=== PATIENT | female | born 1955 | race Caucasian/White ===

== ENCOUNTER 2017-06-16 11:00 | Day surgery (SDC) | payer BC ==
[2017-06-15 10:14] VITALS: BMI 19.3
[2017-06-16] MEDS ORDERED: Propofol 200 MG/20 ML VIAL ONE (13:51)
[2017-06-16] MEDS ORDERED: Lidocaine 2% PF 10 ML AMP (For Epidural Use) ONE (13:51)
[2017-06-16] MEDS ORDERED: Glycopyrrolate 0.2 MG/ML 5 ML SYRINGE ONE (13:51)
--- NOTE | 2017-06-16 19:31 | OP ---
PROCEDURES: EGD with biopsy, colonoscopy, diagnostic. PREOPERATIVE DIAGNOSES: 1. Colorectal cancer screening. 2. Abdominal pain, weight loss, and abnormal CT scan of the small bowel. 3. Nausea and vomiting. POSTOPERATIVE DIAGNOSES: 1. Normal esophagogastroduodenoscopy. Small bowel biopsies taken to rule out celiac disease or inf iltrative process, but no evidence of thickening seen on this even into the third portion of the duo denum that was described on previous CAT scan in the small bowel. 2. Normal ileal colonoscopy. RECOMMENDATIONS: 1. Keep appointment for CT enterography. 2. Follow up in the office early next week. ANESTHESIA: TIVA. PROCEDURE IN DETAIL: After the patient was informed of the risks, benefits, and possible complicati ons of endoscopy including perforation, bleeding, reactions to medication and aspiration, informed c onsent was obtained. The patient brought to endoscopy suite where she was sedated in gradual fashio n. Once she was comfortable, a bite block was placed in incisural orifice. The endoscope was advan keely through the esophagus, stomach and second and third portion of duodenum and slowly removed. The re was good visualization of mucosa. There were no masses, lesions, or arteriovenous malformations identified. There was a small hiatal hernia present. Retroflexed views in the stomach were normal. The duodenum was normal to the third portion. Biopsies from small bowel were taken and submitted to Pathology. The scope was removed. The patient was turned in the room. A rectal exam was performed, which was normal. The endoscope w as advanced through anal canal through the colon. The cecum was identified by ileocecal valve and a ppendiceal orifice. Terminal ileum was entered and found to be normal. The scope was then slowly r emoved. No abnormal findings noted. Retroflexed views were good. The scope was then removed and t he patient brought to recovery in stable condition.
== END 2017-06-16 14:47 | disposition home or self-care (01) ==
LOC: SDC 11:00
PROVIDERS: ATTEND Internal Medicine Gastroenterology
PROC: 0DB98ZX Excision of Duodenum, Via Natural or Artificial Opening Endoscopic, Diagnostic (ICD-10-PCS; principal; 2017-06-16)
PROC: 0DJD8ZZ Inspection of Lower Intestinal Tract, Via Natural or Artificial Opening Endoscopic (ICD-10-PCS; principal; 2017-06-16)
DX: Z12.11 Encounter for screening for malignant neoplasm of colon (principal); R11.0 Nausea; R10.9 Unspecified abdominal pain; R63.4 Abnormal weight loss; R11.2 Nausea with vomiting, unspecified; D47.3 Essential (hemorrhagic) thrombocythemia; D64.9 Anemia, unspecified; R63.0 Anorexia; J44.9 Chronic obstructive pulmonary disease, unspecified; I10 Essential (primary) hypertension; M06.9 Rheumatoid arthritis, unspecified; Z68.1 Body mass index [BMI] 19.9 or less, adult; Z79.52 Long term (current) use of systemic steroids; Z79.899 Other long term (current) drug therapy; Z98.51 Tubal ligation status; Z98.890 Other specified postprocedural states; Z87.891 Personal history of nicotine dependence
CPT/HCPCS: 88305; J2001; J2704

== ENCOUNTER 2018-05-13 09:57 | Outpatient (CLI) | payer BC | END 2018-05-13 09:58 | disposition home or self-care (01) | LOC: BICMAMMO 09:57 | PROVIDERS: ATTEND Obstetrics & Gynecology | DX: Z12.31 Encounter for screening mammogram for malignant neoplasm of breast (principal); Z98.82 Breast implant status; Z80.3 Family history of malignant neoplasm of breast | CPT/HCPCS: 77063; 77067 ==

== ENCOUNTER 2018-06-28 10:21 | Outpatient (CLI) | payer BC ==
--- NOTE | 2018-06-28 12:09 | BD ---
BONE DENSITOMETRY USING DEXA: Date: 06/28/18 HISTORY: Postmenopausal screening for osteoporosis. FINDINGS: Lumbar Spine: BMD (g/cm2) L1 0.898 T-Score: -0.8 Z-Score: 0.7 L2 0.923 T-Score: -1.0 Z-Score: 0.7 L3 0.923 T-Score: -1.5 Z-Score: 0.3 L4 1.074 T-Score: -0.1 Z-Score: 1.9 L1-L4 0.959 T-Score: -0.8 Z-Score: 0.9 Femoral Neck: 0.764 T-Score: -0.8 Z-Score: 0.7 Total Femur: 1.050 T-Score: 0.9 Z-Score: 2.1 IMPRESSION: Normal bone mineral density. No evidence of osteopenia/osteoporosis. POS: [facility]
== END 2018-06-28 10:22 | disposition home or self-care (01) ==
LOC: BICMAMMO 10:21
PROVIDERS: ATTEND Internal Medicine Rheumatology
DX: M81.8 Other osteoporosis without current pathological fracture (principal)
CPT/HCPCS: 77080

== ENCOUNTER 2018-10-11 08:47 | Outpatient (CLI) | payer BC | END 2018-10-11 08:48 | disposition home or self-care (01) | LOC: BICMRI 08:47 | PROVIDERS: ATTEND Orthopaedic Surgery | DX: M05.79 Rheumatoid arthritis with rheumatoid factor of multiple sites without organ or systems involvement (principal); R22.30 Localized swelling, mass and lump, unspecified upper limb | CPT/HCPCS: 82565 ==

== ENCOUNTER 2018-11-01 06:12 | Day surgery (SDC) | payer BC ==
[2018-10-31 15:37] VITALS: BMI 20.7
[2018-11-01] MEDS ORDERED: Midazolam HCl 2 mg/2 ml Vial ONE (06:41)
[2018-11-01] MEDS ORDERED: Fentanyl 100 MCG/2 ML VIAL ONE (06:41)
--- NOTE | 2018-11-01 10:24 | MRI ---
MRI OF THE RIGHT SHOULDER WITH AND WITHOUT IV CONTRAST: Date: 11/01/18 INDICATION: 63-year-old female with a palpable mass along the posterior aspect of the right shoulder that has bee n present for approximately 1 month. Surface marker was placed within the region of interest. Multipl delilah, multisequence MR images were obtained of the right shoulder with and without contrast utilizing 15 mL of MultiHance. No comparisons are available. FINDINGS: Underlying the surface marker is a flame-shaped region of increased T2, increased T1 (relative to mus rigo) signal abnormality with associated heterogeneous enhancement. Similar appearing signal abnormali ty is seen within the interfascial compartment between the infraspinatus and the mid posterior deltoi d that also demonstrates linear enhancement on the postcontrast series. The flame-shaped region of si gnal abnormality and enhancement involving the posterior deltoid measures approximately 2.6 x 1.5 x 1 .6 cm in its greatest AP, mediolateral, and craniocaudad dimensions, respectively. The rotator cuff i s intact. There is mild AC joint osteoarthrosis. No muscular atrophy is evident; however, there is so me high T2 signal seen within the musculature of the infraspinatus. No definite pathologically enlarg ed lymph nodes are evident. One of the most prominent right axillary lymph nodes measures 9.0 mm. No signal abnormality is seen involving the bone. The biceps tendon is located. No abnormal fluid is see n within the subacromial/subdeltoid bursa. Coracoclavicular ligaments are intact. IMPRESSION: 1. T2 hyperintense, T1 hyperintense, enhancing flame-shaped lesion underlying the region of palpable interest of the right posterior deltoid muscle. There is some associated T2 signal abnormality and e nhancement seen within the interfascial space between the right infraspinatus and deltoid muscles. Th ere is some mild abnormal edema seen within the musculature of the infraspinatus without paulina muscle volume loss. No lymphadenopathy is evident. 2. Differential consideration for the findings include an infectious myositis or potentially foreign body reaction. The lesion is not particularly mass-like; however, a primary malignancy or metastatic disease is not entirely excluded. Other less likely causes include a myositis from muscular infarcti on. Other differential considerations include a nonspecific myositis, possibly related to connective tissue disease such as dermatomyositis. Would recommend consideration for biopsy. 3. Mild AC joint osteoarthrosis. 4. Mild suspected myositis involving portions of the infraspinatus. POS: [facility]
[2018-11-01] MEDS ORDERED: Gadobenate Dimeglumine 529 MG/1 ML (20ML VIAL) ONE (11:43)
[2018-11-01] MEDS ORDERED: Lidocaine 1% PF 5 ML VIAL ONE (11:53)
[2018-11-01] MEDS ORDERED: PROPOFOL 200 MG/20 ML VIAL ONE (11:53)
[2018-11-01] MEDS ORDERED: Succinylcholine Chloride 20 MG/ML 10 ml SYRINGE FS ONE (11:53)
[2018-11-01] MEDS ORDERED: Ondansetron PF 4 MG/2 ML Vial ONE (11:53)
== END 2018-11-01 10:15 | disposition home or self-care (01) ==
LOC: SDC/OP 06:12
PROVIDERS: ATTEND Orthopaedic Surgery
DX: R22.31 Localized swelling, mass and lump, right upper limb (principal); M19.011 Primary osteoarthritis, right shoulder; J44.9 Chronic obstructive pulmonary disease, unspecified; M10.9 Gout, unspecified; Z79.52 Long term (current) use of systemic steroids; Z79.51 Long term (current) use of inhaled steroids; Z79.899 Other long term (current) drug therapy
CPT/HCPCS: A9577; J2001; J2250; J2405; J2704; J3010

== ENCOUNTER 2019-01-04 15:38 | Outpatient (CLI) | payer BC ==
--- NOTE | 2019-01-04 16:24 | ULT ---
EXAM: Bilateral lower extremity venous ultrasound HISTORY: Bilateral lower extremity edema. COMPARISON: None TECHNIQUE: Multiplanar grayscale and color Doppler images were obtained in a bilateral lower extremit y venous ultrasound. Spectral analysis of the Doppler waveforms were performed. FINDINGS: The bilateral common femoral vein, profunda femoral veins, superficial femoral veins, and p opliteal veins are normal in appearance without visible thrombus. These vessels demonstrate normal compression, flow, and augmentation. The bilateral posterior tibial veins, profunda femoral veins and greater saphenous veins are patent w ithout evidence of DVT. IMPRESSION: No evidence of DVT.
== END 2019-01-04 15:39 | disposition home or self-care (01) ==
LOC: BICULT 15:38
PROVIDERS: ATTEND Internal Medicine Rheumatology
DX: R60.0 Localized edema (principal)
CPT/HCPCS: 93970

== ENCOUNTER 2019-06-02 09:46 | Outpatient (CLI) | payer BC ==
--- NOTE | 2019-06-02 11:07 | MMO ---
Bilateral MAMMO Bilat Screen [facility]. CLINICAL HISTORY: Patient is 64 years old and is seen for screening. The patient has the following family history of breast cancer: sister, malignant (generic). The patient has no personal history of cancer. The patient has a history of bilateral Implants more than 10 years ago. VIEWS: The views performed were: bilateral craniocaudal with tomosynthesis and bilateral mediolateral oblique with tomosynthesis. FILMS COMPARED: The present examination has been compared to a prior imaging study performed at [facility] on 05/13/2018. This study has been interpreted with the assistance of computer-aided detection. MAMMOGRAM FINDINGS: There are scattered fibroglandular densities. Benign calcifications are noted bilaterally. Bilateral implants are stable. There are no suspicious masses, suspicious calcifications, or new areas of architectural distortion. IMPRESSION: THERE IS NO MAMMOGRAPHIC EVIDENCE OF MALIGNANCY. A ROUTINE FOLLOW-UP MAMMOGRAM IN 1 YEAR IS RECOMMENDED. THE RESULTS OF THIS EXAM WERE SENT TO THE PATIENT. ACR BI-RADS Category 2 - Benign finding MAMMOGRAPHY NOTE: 1. A negative mammogram report should not delay a biopsy if a dominant of clinically suspicious mass is present. 2. Approximately 10% to 15% of breast cancers are not detected by mammography. 3. Adenosis and dense breasts may obscure an underlying neoplasm. Reported by: KOBI MATHEW MD Electonically Signed: [id number]
== END 2019-06-02 09:47 | disposition home or self-care (01) ==
LOC: BICMAMMO 09:46
PROVIDERS: ATTEND Family Medicine
DX: Z12.31 Encounter for screening mammogram for malignant neoplasm of breast (principal); Z80.3 Family history of malignant neoplasm of breast; Z98.82 Breast implant status
CPT/HCPCS: 77063; 77067

== ENCOUNTER 2019-06-14 12:21 | Outpatient (CLI) | payer BC ==
--- NOTE | 2019-06-14 14:04 | RAD ---
2 VIEW CHEST: Date: 06/14/19 HISTORY: COPD. COMPARISON: 05/01/15. FINDINGS: The lungs appear clear. Heart and mediastinum appear normal. IMPRESSION: No acute process. POS: [facility]
--- NOTE | 2019-06-14 14:04 | RAD ---
THORACIC SPINE 3 VIEWS: Date: 06/14/19 HISTORY: Thoracic pain. FINDINGS: Thoracic vertebra maintain normal height and alignment. Mild degenerative spurring. No focal lytic or blastic process. No compression deformity. IMPRESSION: Mild degenerative change. Thoracic spine otherwise unremarkable. POS: [facility]
== END 2019-06-14 12:22 | disposition home or self-care (01) ==
LOC: BICRAD 12:21
PROVIDERS: ATTEND Internal Medicine Rheumatology
DX: M81.8 Other osteoporosis without current pathological fracture (principal); M54.6 Pain in thoracic spine; J44.9 Chronic obstructive pulmonary disease, unspecified; R63.4 Abnormal weight loss; M47.814 Spondylosis without myelopathy or radiculopathy, thoracic region
CPT/HCPCS: 71046; 72070

== ENCOUNTER 2019-07-11 10:18 | Outpatient (CLI) | payer BC ==
--- NOTE | 2019-07-11 11:32 | BD ---
DEXA BONE DENSITY STUDY: Date: 07/11/19 HISTORY: Osteoporosis screening. COMPARISON: Exam from 2018. FINDINGS: Lumbar Spine: BMD (g/cm2) L1 0.840 T-Score: -1.4 Z-Score: 0.2 L2 0.917 T-Score: -1.0 Z-Score: 0.7 L3 0.973 T-Score: -1.0 Z-Score: 0.8 L4 1.087 T-Score: -0.2 Z-Score: 2.1 L1-L4 0.960 T-Score: -0.8 Z-Score: 1.0 Change from comparison exam is +0.2%, not statistically significant. Left Femoral Neck: 0.742 T-Score: -1.0 Z-Score: 0.5 Total Femur: 0.953 T-Score: 0.1 Z-Score: 1.3 Change from comparison exam is -9.3%, statistically significant decrease. 10 YEAR FRACTURE RISK: Major osteoporotic fracture: 8.6% Hip fracture: 0.8% IMPRESSION: Osteopenia with statistically significant decreased bone mineral density of the total left hip from t he comparison exam. POS: [facility]
== END 2019-07-11 10:19 | disposition home or self-care (01) ==
LOC: BICMAMMO 10:18
PROVIDERS: ATTEND Internal Medicine Rheumatology
DX: M81.8 Other osteoporosis without current pathological fracture (principal); M54.6 Pain in thoracic spine; M85.852 Other specified disorders of bone density and structure, left thigh
CPT/HCPCS: 77080

== ENCOUNTER 2019-09-12 11:53 | Outpatient (CLI) | payer BC ==
--- NOTE | 2019-09-12 12:16 | RAD ---
EXAM: Chest 2 views: HISTORY: Dyspnea COMPARISON: 06/14/2019 FINDINGS: There is a normal-sized cardiomediastinal silhouette. There is no evidence of consolidation, mass, or pleural effusion. The bones are unremarkable. IMPRESSION: No evidence of acute cardiopulmonary disease
== END 2019-09-12 11:54 | disposition home or self-care (01) ==
LOC: RAD 11:53
PROVIDERS: ATTEND Internal Medicine Pulmonary Disease
DX: R06.00 Dyspnea, unspecified (principal)
CPT/HCPCS: 71046

== ENCOUNTER 2020-06-11 11:56 | Outpatient (CLI) | payer BC ==
--- NOTE | 2020-06-11 13:13 | MMO ---
Bilateral MAMMO Bilat Screen [facility]. CLINICAL HISTORY: Patient is 65 years old and is seen for screening. The patient has the following family history of breast cancer: sister, malignant (generic). The patient has no personal history of cancer. The patient has a history of bilateral Implants more than 10 years ago. VIEWS: The views performed were: bilateral craniocaudal with tomosynthesis; bilateral mediolateral oblique with tomosynthesis; and bilateral Implant displaced with tomosynthesis. FILMS COMPARED: The present examination has been compared to prior imaging studies performed at [facility] on 05/13/2018 and 06/02/2019. This study has been interpreted with the assistance of computer-aided detection. MAMMOGRAM FINDINGS: There are scattered fibroglandular densities. There are benign appearing calcifications seen in both breasts. There are no suspicious masses, suspicious calcifications, or new areas of architectural distortion. IMPRESSION: THERE IS NO MAMMOGRAPHIC EVIDENCE OF MALIGNANCY. A ROUTINE FOLLOW-UP MAMMOGRAM IN 1 YEAR IS RECOMMENDED. THE RESULTS OF THIS EXAM WERE SENT TO THE PATIENT. ACR BI-RADS Category 2 - Benign finding MAMMOGRAPHY NOTE: 1. A negative mammogram report should not delay a biopsy if a dominant of clinically suspicious mass is present. 2. Approximately 10% to 15% of breast cancers are not detected by mammography. 3. Adenosis and dense breasts may obscure an underlying neoplasm. Reported by: ABIGAIL MASSEY MD Electonically Signed: [id number]
== END 2020-06-11 11:57 | disposition home or self-care (01) ==
LOC: BICMAMMO 11:56
PROVIDERS: ATTEND Registered Nurse
DX: Z12.31 Encounter for screening mammogram for malignant neoplasm of breast (principal); Z80.3 Family history of malignant neoplasm of breast; Z98.82 Breast implant status
CPT/HCPCS: 77063; 77067

== ENCOUNTER 2021-02-03 17:10 | Emergency (ER) | payer BC ==
[2021-02-03 17:53] LABS: #Eosinphils 0.1 thou/uL (0.0-0.7); #Lymphocytes 0.7 thou/uL (1.20-3.40); #Monocytes 0.8 thou/uL (0.11-0.59); #Neutrophils 7.1 thou/uL (1.40-6.50); %Basophils 0.2 % (0.0-1.0); %Eosinophils 0.6 % (0.0-10.0); %Lymphocytes 8.5 % (21.0-51.0); %Monocytes 9.2 % (0.0-10.0); %Neutrophils 81.6 % (42.0-75.0); Hemoglobin 12.6 g/dL (12.0-16.0); Mean Corpuscular HGB CONC 33.7 g/dL (32.0-36.0); Mean Corpuscular Hemoglobin 32.4 pg (27.0-31.0); Mean Platelet Volume 8.1 fL (7.4-10.4); Platelet Count 397 thou/uL (130-400); RBC Distribution Width 12.8 % (11.5-14.5); White Blood Cell (WBC) Count 8.7 thou/uL (4.8-10.8)
[2021-02-03 18:08] LABS: ALT (SGPT) 74 U/L (8-55); AST (SGOT) 79 U/L (5-34); Albumin 3.5 g/dL (3.4-4.8); Alkaline Phosphatase 278 U/L (40-110); Anion Gap 17 mmol/L (10-20); BUN (Urea Nitrogen) 27 mg/dL (9.8-20.1); Bilirubin, Total 0.8 mg/dL (0.2-1.2); Calc. Creatinine Clearance 0 mL/min (70-130); Calcium 8.5 mg/dL (7.8-10.44); Carbon Dioxide 27 mmol/L (23-31); Chloride 93 mmol/L (98-107); Globulin 3.6 g/dL (2.4-3.5); Glucose 112 mg/dL (80-115); Lipase 56 U/L (8-78); Potassium 3.7 mmol/L (3.5-5.1); Protein, Total 7.1 g/dL (5.8-8.1); Sodium 133 mmol/L (136-145)
== END 2021-02-03 21:50 | disposition home or self-care (01) ==
LOC: ERS 17:10
DX: E86.0 Dehydration (principal); E86.1 Hypovolemia; N17.9 Acute kidney failure, unspecified; J44.9 Chronic obstructive pulmonary disease, unspecified; Z79.899 Other long term (current) drug therapy
CPT/HCPCS: 36415; 71045; 80053; 82550; 83690; 84484; 85025; 93005

== ENCOUNTER 2021-03-27 10:35 | Outpatient (CLI) | payer BC, MEDICARE | END 2021-03-27 10:36 | disposition home or self-care (01) | LOC: BICMAMMO 10:35 | PROVIDERS: ATTEND Internal Medicine Rheumatology | DX: M81.8 Other osteoporosis without current pathological fracture (principal); M85.89 Other specified disorders of bone density and structure, multiple sites | CPT/HCPCS: 77080 ==

== ENCOUNTER 2021-06-17 10:09 | Outpatient (CLI) | payer MEDICARE, BC | END 2021-06-17 10:10 | disposition home or self-care (01) | LOC: BICMAMMO 10:09 | PROVIDERS: ATTEND Registered Nurse | DX: Z12.31 Encounter for screening mammogram for malignant neoplasm of breast (principal); Z98.82 Breast implant status; Z80.3 Family history of malignant neoplasm of breast | CPT/HCPCS: 77063; 77067 ==

== ENCOUNTER 2022-06-18 10:59 | Outpatient (CLI) | payer MEDICARE, BC | END 2022-06-18 11:00 | disposition home or self-care (01) | LOC: BICMAMMO 10:59 | PROVIDERS: ATTEND Registered Nurse | DX: Z12.31 Encounter for screening mammogram for malignant neoplasm of breast (principal); Z98.82 Breast implant status; Z80.3 Family history of malignant neoplasm of breast | CPT/HCPCS: 77063; 77067 ==

== ENCOUNTER 2023-06-21 09:53 | Outpatient (CLI) | payer MEDICARE, BC | END 2023-06-21 09:54 | disposition home or self-care (01) | LOC: BICMAMMO 09:53 | PROVIDERS: ATTEND Registered Nurse | DX: Z12.31 Encounter for screening mammogram for malignant neoplasm of breast (principal); Z13.820 Encounter for screening for osteoporosis; T38.0X1A Poisoning by glucocorticoids and synthetic analogues, accidental (unintentional), initial encounter; Z80.3 Family history of malignant neoplasm of breast; Z98.82 Breast implant status; M85.89 Other specified disorders of bone density and structure, multiple sites | CPT/HCPCS: 77063; 77067; 77080 ==

== ENCOUNTER 2024-01-11 10:49 | Inpatient (IN) | payer MEDICARE, BC ==
[2024-01-11 11:47] LABS: #Basophils 0.03 10x3/uL (0.0-0.2); #Eosinphils Less than 0.03 10x3/uL (0.0-0.7); %Basophils 0.2 % (0.0-1.0); %Eosinophils 0.1 % (0.0-10.0); %Lymphocytes 8.2 % (21.0-51.0); %Monocytes 6.4 % (0.0-10.0); %Neutrophils 84.7 % (42.0-75.0); Mean Corpuscular HGB CONC 33.3 g/dL (32.0-36.0); Mean Corpuscular Hemoglobin 30.7 pg (27.0-31.0); Mean Corpuscular Volume 92.1 fL (78.0-98.0); Mean Platelet Volume 9.5 fL (7.4-10.4); Platelet Count 504 10x3/uL (130-400); RBC Distribution Width 12.6 % (11.5-14.5); Red Blood Cell (RBC) Count 3.91 mill/uL (4.20-5.40)
[2024-01-11 11:53] LABS: ALT (SGPT) 15 U/L (8-55); AST (SGOT) 18 U/L (5-34); Albumin 3.1 g/dL (3.4-4.8); Alkaline Phosphatase 58 U/L (40-110); Anion Gap 19 mmol/L (10-20); BUN (Urea Nitrogen) 35 mg/dL (9.8-20.1); Bilirubin, Total 0.5 mg/dL (0.2-1.2); Calc. Creatinine Clearance 0 mL/min (70-130); Calcium 10.1 mg/dL (7.8-10.44); Carbon Dioxide 22 mmol/L (23-31); Chloride 97 mmol/L (98-107); Estimated GFR 28; Globulin 4.8 g/dL (2.4-3.5); Glucose 114 mg/dL (80-115); Potassium 4.1 mmol/L (3.5-5.1); Protein, Total 7.9 g/dL (5.8-8.1); Sodium 134 mmol/L (136-145)
[2024-01-11 14:38] LABS: Actual Bicarbonate (HCO3v) 24.1 mEq/L (22-28); Base Excess 0.6 mEq/L (-2.0 to +3.0); Calcium, Ionized (venous) 1.14 mmol/L (1.16-1.32); Chloride (VBG) 96 mmol/L (98-106); Hematocrit-VBG 37 % (36.0-47.0); Hemoglobin (Hb) 12.7 g/dL (11.7-16.1); Potassium (VBG) 4.49 mmol/L (3.70-5.30); Sodium 133 mmol/L (133-146); pH (venous) 7.456 (7.32-7.43)
[2024-01-11 14:55] LABS: PTT 28.5 sec (22.9-36.1); Prothrombin Time 13.3 sec (12.0-14.7)
[2024-01-11 15:20] LABS: Troponin I Less than 0.010 ng/mL (< 0.028)
[2024-01-11] MEDS ORDERED: Sodium Chloride 0.9% 100 ML ONE (16:26)
[2024-01-11] MEDS ORDERED: Piperacillin/Tazobactam 3.375 GM VIAL ONE (16:26)
[2024-01-11] MEDS ORDERED: Bisacodyl 5 MG TAB PO PRN (16:42)
[2024-01-11] MEDS ORDERED: Ondansetron ODT 4 MG TAB PO PRN (16:42)
[2024-01-11] MEDS ORDERED: Acetaminophen 325 MG TAB PO PRN (16:42)
[2024-01-11] MEDS ORDERED: Ondansetron PF 4 MG/2 ML Vial IVP PRN (16:42)
[2024-01-11] MEDS ORDERED: Senokot S 8.6-50 MG TAB PO PRN (16:42)
[2024-01-11] MEDS ORDERED: Acetaminophen 650 MG Suppository PR PRN (16:42)
[2024-01-11] MEDS ORDERED: Guaifenesin DM 100-10/5 ML UDCUP PO PRN (16:42)
[2024-01-11] MEDS ORDERED: Albuterol 2.5 MG (3 mL) NEB NEB PRN (16:42)
[2024-01-11] MEDS: Vancomycin (BATCH) 1.25 GM in Premix 1 BAG IVPB SCH (19:15)
[2024-01-11] MEDS: Sodium Chloride 0.9% 1,000 ML IV SCH (19:18)
[2024-01-11 19:20] VITALS: BMI 17.4
[2024-01-11] MEDS: methylPREDNISolone Sod Succ 40 MG VIAL IVP SCH (19:22)
[2024-01-11] MEDS: cefTRIAXone\\ROCEPHIN 1 GM in Sodium Chloride 0.9% 100 ML IVPB SCH (20:02)
[2024-01-11] MEDS: Azithromycin 500 MG in Sodium Chloride 0.9% 250 ML 250 ML IVPB SCH (20:02)
[2024-01-11] MEDS: Heparin 5,000 UNITS/ML VIAL SC SCH (20:03)
[2024-01-11] MEDS: Ipratropium/Albuterol 3 ML NEB NEB SCH (20:45)
[2024-01-11 21:35] LABS: Legionella Urinary Ag Negative (Negative); Strep pneumo Urine Ag NEGATIVE (NEGATIVE)
[2024-01-12] MEDS: Melatonin 3 MG TAB PO SCH (00:17)
[2024-01-12 06:06] LABS: Hematocrit 29.2 % (36.0-47.0); Hemoglobin 9.4 g/dL (12.0-16.0); Mean Corpuscular HGB CONC 32.2 g/dL (32.0-36.0); Mean Corpuscular Hemoglobin 29.5 pg (27.0-31.0); Mean Corpuscular Volume 91.5 fL (78.0-98.0); Mean Platelet Volume 9.7 fL (7.4-10.4); Platelet Count 351 10x3/uL (130-400); RBC Distribution Width 12.7 % (11.5-14.5); Red Blood Cell (RBC) Count 3.19 mill/uL (4.20-5.40)
[2024-01-12 06:28] LABS: Lymphocytes 1 % (21-51); Monocytes 1 % (0-10); Neutrophil 97 % (42-75); Platelet Adequacy Comment Platelets Normal; RBC Morphology Within Normal Limits
[2024-01-12 07:10] LABS: Anion Gap 16 mmol/L (10-20); BUN (Urea Nitrogen) 34 mg/dL (9.8-20.1); Calc. Creatinine Clearance 25 mL/min (70-130); Calcium 8.8 mg/dL (7.8-10.44); Carbon Dioxide 23 mmol/L (23-31); Chloride 107 mmol/L (98-107); Estimated GFR 35; Glucose 142 mg/dL (80-115); Potassium 4.9 mmol/L (3.5-5.1); Sodium 141 mmol/L (136-145)
[2024-01-12] MEDS: Ipratropium/Albuterol 3 ML NEB NEB SCH (14:16)
[2024-01-12] MEDS: Losartan 25 MG TAB PO SCH ×2 (15:40→15:42)
[2024-01-12 17:26] VITALS: BMI 17.4
[2024-01-12] MEDS: Mometasone 100 MCG HFA INHALER (RT USE) INH SCH (19:01)
[2024-01-12] MEDS: Melatonin 3 MG TAB PO PRN (21:41)
[2024-01-13 06:00] LABS: #Basophils 0.03 10x3/uL (0.0-0.2); %Basophils 0.3 % (0.0-1.0); %Eosinophils 0.3 % (0.0-10.0); Hematocrit 30.8 % (36.0-47.0); Hemoglobin 9.8 g/dL (12.0-16.0); Mean Corpuscular HGB CONC 31.8 g/dL (32.0-36.0); Mean Corpuscular Volume 94.2 fL (78.0-98.0); Mean Platelet Volume 9.8 fL (7.4-10.4); Platelet Count 404 10x3/uL (130-400); RBC Distribution Width 12.9 % (11.5-14.5); Red Blood Cell (RBC) Count 3.27 mill/uL (4.20-5.40)
[2024-01-13 07:12] LABS: Anion Gap 12 mmol/L (10-20); BUN (Urea Nitrogen) 32 mg/dL (9.8-20.1); Calc. Creatinine Clearance 29 mL/min (70-130); Calcium 8.9 mg/dL (7.8-10.44); Carbon Dioxide 22 mmol/L (23-31); Chloride 111 mmol/L (98-107); Estimated GFR 43; Glucose 86 mg/dL (80-115); Potassium 4.3 mmol/L (3.5-5.1); Sodium 141 mmol/L (136-145)
[2024-01-13] MEDS: Losartan 25 MG TAB PO SCH (08:25)
[2024-01-13] MEDS: Cholecalciferol 1,000 UNITS (25 MCG) TAB PO SCH (08:26)
[2024-01-13] MEDS: methylPREDNISolone Sod Succ 40 MG VIAL IVP SCH (08:34)
[2024-01-13] MEDS ORDERED: [UNRECOGNIZED DRUG - OTHER] PO SCH (09:00)
[2024-01-13] MEDS ORDERED: Cholecalciferol 1,000 UNITS (25 MCG) TAB PO SCH (09:00)
[2024-01-13] MEDS ORDERED: Non-Formulary Item 1 EACH (Fluticasone/Umeclidin/Vilanter [Trelegy Ellipta 200-62.5-25] 1 INH SCH (09:00)
[2024-01-13] MEDS ORDERED: [UNRECOGNIZED DRUG - OTHER] PO SCH (09:00)
[2024-01-13] MEDS ORDERED: VITAMIN C PO SCH (09:00)
[2024-01-13] MEDS ORDERED: BIOTIN PO SCH (09:00)
[2024-01-13] MEDS ORDERED: Losartan 25 MG TAB PO SCH (09:00)
[2024-01-13 09:27] VITALS: TEMP 98.2
[2024-01-13 10:02] VITALS: BP 170/72
== END 2024-01-13 10:37 | disposition home or self-care (01) | DRG 871 ==
LOC: ERS 10:49 → T4-A 16:27
PROVIDERS: ADMIT Internal Medicine; ATTEND Hospitalist
DX: A41.1 Sepsis due to other specified staphylococcus (principal); J18.9 Pneumonia, unspecified organism; J96.01 Acute respiratory failure with hypoxia; N17.9 Acute kidney failure, unspecified; J44.1 Chronic obstructive pulmonary disease with (acute) exacerbation; J43.9 Emphysema, unspecified; I12.9 Hypertensive chronic kidney disease with stage 1 through stage 4 chronic kidney disease, or unspecified chronic kidney disease; N18.9 Chronic kidney disease, unspecified; R22.2 Localized swelling, mass and lump, trunk; Z79.899 Other long term (current) drug therapy; Z98.51 Tubal ligation status; Z98.82 Breast implant status; Z87.891 Personal history of nicotine dependence; M05.79 Rheumatoid arthritis with rheumatoid factor of multiple sites without organ or systems involvement
CPT/HCPCS: 36415; 71046; 71250; 80048; 80053; 82805; 83605; 83880; 84443; 84484; 85025; 85610; 85730; 87040; 87149; 87449; 87633; 87899; 93005; 94640; 96374; J0456; J0696; J1644; J2543; J2920; J3370; J3490; J7050; J7620

== ENCOUNTER 2024-03-01 10:18 | Outpatient (CLI) | payer MEDICARE, BC | END 2024-03-01 10:19 | disposition home or self-care (01) | LOC: BICCT 10:18 | PROVIDERS: ATTEND Registered Nurse | DX: R91.1 Solitary pulmonary nodule (principal); J98.4 Other disorders of lung; J43.9 Emphysema, unspecified; I25.10 Atherosclerotic heart disease of native coronary artery without angina pectoris; Z98.82 Breast implant status | CPT/HCPCS: 71250 ==

== ENCOUNTER 2024-05-11 10:15 | Outpatient (CLI) | payer MEDICARE, BC | END 2024-05-11 10:16 | disposition home or self-care (01) | LOC: RAD 10:15 | PROVIDERS: ATTEND Internal Medicine | DX: R06.00 Dyspnea, unspecified (principal) | CPT/HCPCS: 71046 ==

== ENCOUNTER 2024-08-01 11:02 | Outpatient (CLI) | payer MEDICARE, BC | END 2024-08-01 11:03 | disposition home or self-care (01) | LOC: BICMAMMO 11:02 | PROVIDERS: ATTEND Registered Nurse | DX: Z12.31 Encounter for screening mammogram for malignant neoplasm of breast (principal); Z80.3 Family history of malignant neoplasm of breast; Z98.82 Breast implant status | CPT/HCPCS: 77063; 77067 ==

== ENCOUNTER 2025-07-10 10:25 | Outpatient (CLI) | payer BC, MEDICARE | END 2025-07-10 10:26 | disposition home or self-care (01) | LOC: BICMAMMO 10:25 | PROVIDERS: ATTEND Internal Medicine Rheumatology | DX: M81.0 Age-related osteoporosis without current pathological fracture (principal); M85.89 Other specified disorders of bone density and structure, multiple sites | CPT/HCPCS: 77080 ==